=== PATIENT | male | born 1980 | race Caucasian/White ===

== ENCOUNTER → 2017-11-17 | Outpatient (CLI) | payer OTHER ==
[~2017-11-17] VITALS: Ht 175.3 cm; Wt 146.6 kg
[~2017-11-17] MED LIST: DIPH25CA37 PO; FLUT110A INH; LISI-461 PO; NAPR375T PO
[2017-11-17 15:32] VITALS: BP 147/95; PULSE 102; Ht 175.3 cm; Wt 146.6 kg
== END | disposition home or self-care (01) ==
LOC: C.NEUR 15:04
PROVIDERS: ATTEND Internal Medicine Pulmonary Disease
DX: G47.33 Obstructive sleep apnea (adult) (pediatric) (principal); E66.9 Obesity, unspecified; J45.909 Unspecified asthma, uncomplicated